=== PATIENT | male | born 1965 | race Caucasian/White ===

== ENCOUNTER → 2016-08-25 | Outpatient (CLI) | payer OTHER ==
[~2016-08-25] MED LIST: MAGN400T6 PO; METO25TA56 PO; PENI-82 PO
--- NOTE | 2016-08-25 17:10 | DIAGNOSTIC IMAGING REPORT ---
L-SPINE MIN 4 VIEWS ROUTINE CLINICAL HISTORY: Low back pain. COMPARISON: None FINDINGS: There is mild rightward curvature of the lumbar spine. Alignment is otherwise anatomic. Vertebral body heights are maintained obtained. Multilevel endplate irregularity suggests Schmorl's nodes. Mild multilevel degenerative disc disease is present. No fracture or suspicious lesion is identified. Several calcifications projecting over the left renal shadow suggest calculi which measure up to 4 mm. IMPRESSION: 1. Mild multilevel degenerative disc disease of the lumbar spine. 2. Mild rightward curvature of the lumbar spine. 3. Suspected left-sided nephrolithiasis. Electronically signed by: Edward Allen M.D. 08/25/2016 5:09 PM Dictated Date/Time: 08/25/2016 5:00 PM
== END | disposition home or self-care (01) ==
LOC: C.RAD1850 16:22
PROVIDERS: ATTEND Nurse Practitioner Family
DX: M54.5 Low back pain (principal)

== ENCOUNTER → 2017-06-28 | Outpatient (CLI) | payer OTHER | END | disposition home or self-care (01) | LOC: C.LABSPEC 17:58 | PROVIDERS: ATTEND Nurse Practitioner Family | DX: M54.5 Low back pain (principal) ==

== ENCOUNTER → 2017-09-01 | Outpatient (CLI) | payer OTHER ==
[~2017-09-01] MED LIST changes: +OPTIRAY 320 IV PRN
--- NOTE | 2017-09-01 08:17 | DIAGNOSTIC IMAGING REPORT ---
CT UROGRAM CLINICAL HISTORY: Microscopic hematuria. COMPARISON STUDY: Renal ultrasound dated 08/23/2007. TECHNIQUE: Before and following the IV administration of 93 cc of Optiray 320, CT urogram of the abdomen and pelvis is performed from the lung bases to the proximal femora. Images are reviewed in the axial, sagittal, and coronal planes. IV contrast was administered without complication. A dose lowering technique was utilized adhering to the principles of ALARA. CT DOSE: 1369.56 mGycm FINDINGS: Lung bases: The heart is normal in size and without pericardial effusion. A fat-containing Bochdalek hernia is seen at the right lung base. There is a 5 mm pleural-based nodule in the right middle lobe seen on image #22. A 6 mm left lower lobe nodule is seen image #61. No airspace consolidation or pleural effusion is identified. Bibasilar atelectasis is noted. Liver: The contrast-enhanced liver is normal in size, contour, and attenuation. There is no intrahepatic biliary ductal dilatation. The hepatic veins and portal veins are patent. Gallbladder: Unremarkable. Spleen: Normal in size and attenuation. Pancreas: Unremarkable. Adrenal glands: Unremarkable. Kidneys and ureters: The contrast enhanced kidneys are normal in size and without hydronephrosis. There are least 5 nonobstructing left renal calculi measuring up to 4 mm. No right renal calculi are identified on the unenhanced series. The kidneys enhance and excrete symmetrically. There is a 1.7 cm simple cyst in the right kidney and a 1.8 cm simple cyst in the left kidney. An additional subcentimeter cortical hypodensity in the left kidney also likely represents a cyst but is too small for definitive characterization. There is no enhancing renal cortical mass lesion identified. There is no evidence of urothelial lesion within the renal pelvis bilaterally or along the course of either ureter. The distal right ureter is not well opacified by excreted contrast. Abdominal vasculature: The abdominal aorta is normal in course and caliber. Bowel: There is mild fecal retention in the right colon. No bowel obstruction is identified. The appendix is well-visualized and normal. Peritoneum: There is no intraperitoneal free air or abdominal ascites. There is a small fat-containing umbilical hernia. Lymphadenopathy: None. Pelvic viscera: The bladder, prostate, and seminal vesicles are normal as visualized.. Surgical clips are noted along the spermatic cord bilaterally. Skeletal structures: A large hemangioma is seen in the body of T10. No lytic or blastic lesions are seen. Small bone islands are incidentally noted in the left femoral head. IMPRESSION: 1. Nonobstructing left renal calculi. 2. The kidneys are normal in size and without hydronephrosis. 3. There is no enhancing renal cortical mass, and no evidence of urothelial lesion involving the renal pelvis bilaterally or along the course of ureters. 4. The bladder is normal as visualized. 5. There are 2 indeterminant pulmonary nodules identified at the lung bases measuring up to 6 mm. Follow-up with a dedicated chest CT is recommended for further evaluation of the thorax. 6. No acute infectious or inflammatory findings are identified in the abdomen or pelvis. Electronically signed by: Ihsan Akins M.D. 09/01/2017 8:16 AM Dictated Date/Time: 09/01/2017 8:07 AM
== END | disposition home or self-care (01) ==
LOC: C.CTS 07:34
PROVIDERS: ATTEND Urology
DX: R31.29 Other microscopic hematuria (principal); N20.0 Calculus of kidney; R91.8 Other nonspecific abnormal finding of lung field

== ENCOUNTER → 2017-09-07 | Outpatient (CLI) | payer OTHER ==
[~2017-09-07] MED LIST changes: -OPTIRAY 320 IV PRN
--- NOTE | 2017-09-07 14:39 | DIAGNOSTIC IMAGING REPORT ---
(CHEST) THORAX WITHOUT CT DOSE: 395.26 mGy.cm HISTORY: Lung nodule abnormal CT exam TECHNIQUE: Multiaxial CT images of the chest were performed without contrast. A dose lowering technique was utilized adhering to the principles of ALARA. COMPARISON: 09/01/2017 FINDINGS: There are 3 nodular densities of the right mid and lower lung regions. Largest of these measures 7 mm transaxial image 39. Smaller 4 and 6 mm nodules are identified at the right lung base. Findings are unchanged. The largest nodule was not seen due to field limitations of a prior study. There are findings of mild chronic granulomatous changes of the right to lesser extent left base. Lungs otherwise are considered clear. There is no significant mediastinal or hilar adenopathy. Axillary regions are unremarkable. There are several benign hemangiomas of the thoracic spine. IMPRESSION: 1. 3 low suspicion nodules right lung base. 2. This study should be repeated in 6 months has follow-up. 3. Remainder of the chest is negative.. The above report was generated using voice recognition software. It may contain grammatical, syntax or spelling errors. Electronically signed by: Rudy Betancur M.D. 09/07/2017 2:37 PM Dictated Date/Time: 09/07/2017 2:33 PM
== END | disposition home or self-care (01) ==
LOC: C.CTS 14:13
PROVIDERS: ATTEND Family Medicine
DX: R91.1 Solitary pulmonary nodule (principal)